=== PATIENT | male | born 1970 | race African-American/Black ===

== ENCOUNTER 2017-09-24 23:18 | Inpatient (IN) | payer OTHER, SELFPAY ==
[~2017-09-24 23:18] MED LIST: ISOVUE-370 76%-LOCM 1 ML ONE
[2017-09-24 23:41] LABS: #Basophils 0.2 thou/uL (0.0-0.2); #Eosinphils 0.1 thou/uL (0.0-0.7); #Lymphocytes 3.3 thou/uL (1.20-3.40); #Monocytes 0.9 thou/uL (0.11-0.59); #Neutrophils 13.3 thou/uL (1.40-6.50); %Eosinophils 0.7 % (0.0-10.0); %Lymphocytes 18.6 % (21.0-51.0); %Monocytes 5.1 % (0.0-10.0); %Neutrophils 74.7 % (42.0-75.0); Hemoglobin 14.9 g/dL (14.0-18.0); Mean Corpuscular HGB CONC 35.4 g/dL (32.0-36.0); Mean Corpuscular Hemoglobin 31.7 pg (27.0-31.0); Mean Corpuscular Volume 89.6 fl (80.0-94.0); Mean Platelet Volume 6.7 fL (7.4-10.4); Platelet Count 345 thou/uL (130-400); RBC Distribution Width 11.6 % (11.5-14.5); Red Blood Cell (RBC) Count 4.71 mill/uL (4.70-6.10); White Blood Cell (WBC) Count 17.9 thou/uL (4.8-10.8)
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
[2017-09-24 23:46] LABS: PTT 23.3 SEC (22.9-36.1); Prothrombin Time 13.6 SEC (12.0-14.7)
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
[2017-09-25 00:01] LABS: ALT (SGPT) 157 U/L (8-55); AST (SGOT) 194 U/L (5-34); Acetaminophen Less than 6.0 mcg/mL (10.0-30.0); Albumin 4.4 g/dL (3.5-5.0); Alcohol 158 mg/dL (Less than 10); Alkaline Phosphatase 52 U/L (40-150); Anion Gap 15 mmol/L (10-20); BUN (Urea Nitrogen) 13 mg/dL (8.9-20.6); Bilirubin, Total 0.5 mg/dL (0.2-1.2); Calc. Creatinine Clearance 0 mL/min (70-130); Calcium 10.1 mg/dL (7.8-10.44); Carbon Dioxide 20 mmol/L (22-29); Chloride 102 mmol/L (98-107); Estimated GFR-MDRD 67; Globulin 2.5 g/dL (2.4-3.5); Glucose 189 mg/dL (70-105); Potassium 3.8 mmol/L (3.5-5.1); Protein, Total 6.9 g/dL (6.0-8.3); Salicylate Less than 8.0 mg/dL (15.0-30.0); Sodium 133 mmol/L (136-145)
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
[2017-09-25] MEDS ORDERED: Morphine 4 MG/ML VIAL ONE (00:06)
[2017-09-25] MEDS ORDERED: CEFAZOLIN/Water 2 GM/20 ML SYRINGE ONE (00:06)
[2017-09-25] MEDS ORDERED: Adacel (T-DAP) 0.5 ML VIAL ONE (00:06)
[2017-09-25] MEDS ORDERED: Lidocaine 1% w/Epinephrine 1:100K 20 ML VIAL ONE (00:06)
[2017-09-25] MEDS ORDERED: Ondansetron ODT 8 MG TAB ONE (00:26)
[2017-09-25] MEDS ORDERED: Dextrose 5% in Water 1,000 ML IV PRN (01:31)
[2017-09-25] MEDS ORDERED: Insulin Regular 300 UNITS/3 ML VIAL SC PRN (01:31)
[2017-09-25] MEDS ORDERED: hydrALAZINE 20 MG/ML VIAL SLOW IVP PRN (01:31)
[2017-09-25] MEDS ORDERED: Rib Fracture Protocol IV SCH (01:31)
[2017-09-25] MEDS ORDERED: Ondansetron ODT 4 MG TAB PO PRN (01:31)
[2017-09-25] MEDS ORDERED: Ondansetron HCl/PF 4 MG/2 ML Vial IVP PRN (01:31)
[2017-09-25] MEDS ORDERED: Dextrose 50% Abboject 50 ML SYRINGE SLOW IVP PRN ×2 (01:31)
[2017-09-25] MEDS ORDERED: Promethazine HCl 25 MG/ML VIAL IM PRN ×2 (01:31)
[2017-09-25 01:55] LABS: Bilirubin Negative (Negative); Blood, Urine Large (Negative); Clarity CLOUDY (Clear); Glucose, Urine (Dipstick) Negative (Negative); Leukocyte Trace (Negative); Nitrite Negative (Negative); Protein, Urine (Dipstick) 100 mg/dL (Neg-Trace); Specific Gravity, Urine 1.018 (1.002-1.036); Urobilinogen 0.2 mg/dL (0.2-1.0)
[2017-09-25 01:56] LABS: Amphetamine Not Detected (NotDetected); Barbiturates Screen Not Detected (NotDetected); Benzodiazepine Screen Not Detected (NotDetected); Cocaine Metabolite Screen Detected (NotDetected); Medtox Control Line Valid? VALID (VALID); Medtox Reader # READER 4; Methadone Not Detected (NotDetected); Methamphetamine Not Detected (NotDetected); Opiate Screen Detected (NotDetected); Oxycodone Screen Not Detected (NotDetected); Phencyclidine (PCP) Not Detected (NotDetected); THC/Cannabinoid Screen Not Detected (NotDetected); Tricyclic Screen Not Detected (NotDetected)
[2017-09-25 01:57] LABS: Pathc Cast-AUWi Flag 0.29 (0-2.49); Yeast-AUWi Flag 167.1 (0-25.0)
[2017-09-25 01:58] LABS: Crystals/HPF 1+ AMORPH URATES HPF (Negative); Hyaline Casts/LPF NONE SEEN LPF (0-3 Hyaline)
[2017-09-25 01:59] LABS: Bacteria/HPF Rare-Few HPF (None Seen); RBC/HPF GREATER THAN 50-TNTC HPF (0-3); Squamous Epithelial 0-3 HPF (0-3)
[2017-09-25] MEDS ORDERED: Ketorolac Tromethamine 30 MG/ML VIAL IVP SCH (02:15)
[2017-09-25] MEDS: Sodium Chloride 0.9% 1,000 ML IV SCH ×3 (02:23→21:36)
[2017-09-25] MEDS: Ketorolac Tromethamine 30 MG/ML VIAL IVP SCH ×4 (02:23→18:18)
[2017-09-25] MEDS: Oxazepam 10 MG CAP PO SCH ×3 (02:24→18:17)
[2017-09-25 03:05] LABS: Hemoglobin 12.5 g/dL (14.0-18.0)
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
[2017-09-25 03:08] VITALS: BMI 24.6
[2017-09-25 03:31] LABS: ALT (SGPT) 128 U/L (8-55); AST (SGOT) 147 U/L (5-34); Albumin 3.5 g/dL (3.5-5.0); Alkaline Phosphatase 40 U/L (40-150); Anion Gap 15 mmol/L (10-20); BUN (Urea Nitrogen) 13 mg/dL (8.9-20.6); Bilirubin, Total 0.3 mg/dL (0.2-1.2); Calc. Creatinine Clearance 98 mL/min (70-130); Calcium 8.1 mg/dL (7.8-10.44); Carbon Dioxide 15 mmol/L (22-29); Chloride 108 mmol/L (98-107); Estimated GFR-MDRD Greater than 90; Globulin 1.9 g/dL (2.4-3.5); Glucose 158 mg/dL (70-105); Potassium 3.9 mmol/L (3.5-5.1); Protein, Total 5.4 g/dL (6.0-8.3); Sodium 134 mmol/L (136-145)
[2017-09-25] MEDS ORDERED: Morphine 4 MG/ML VIAL SLOW IVP PRN ×2 (04:50→04:51)
[2017-09-25] MEDS: Acetaminophen 650 MG Suppository PR SCH ×2 (06:43→12:07)
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
[2017-09-25 07:42] LABS: Hemoglobin 12.2 g/dL (14.0-18.0)
--- NOTE | 2017-09-25 07:45 | RAD ---
CHEST 1 VIEW: HISTORY: Dyspnea. Followup. COMPARISON: 09/25/17. FINDINGS: Cardiac silhouette is magnified and upper limits of normal in size. Pulmonary vasculature unremarkab le. Mediastinum midline. Left thoracostomy tube is in place without significant residual pneumothor ax. IMPRESSION: Stable postoperative appearance of the chest. POS: [facility]
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
[2017-09-25] MEDS ORDERED: CEFAZOLIN/Water 2 GM/20 ML SYRINGE SLOW IVP SCH (08:30)
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
[2017-09-25] MEDS ORDERED: Famotidine 40 MG/4 ML VIAL SLOW IVP SCH (09:00)
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
[2017-09-25] MEDS ORDERED: Pantoprazole 40 MG VIAL IVP SCH (10:15)
[2017-09-25] MEDS ORDERED: Lidocaine 1% PF 5 ML VIAL ONE (10:39)
[2017-09-25] MEDS ORDERED: PROPOFOL 200 MG/20 ML VIAL ONE (10:39)
[2017-09-25] MEDS ORDERED: Succinylcholine Chloride 20 MG/ML 10 ml SYRINGE FS ONE (10:39)
--- NOTE | 2017-09-25 11:24 | RAD ---
AP PELVIS RADIOGRAPH: Date: 09/25/17 HISTORY: Pelvic fractures. COMPARISON: CT pelvis on 09/24/17. FINDINGS: As noted on the CT scan examination, there are mildly and slightly displaced fractures invo lving the left superior and inferior pubic rami. Fractures involving the right ilium and right aspect of the sacrum are less well delineated on this exam. No fracture is seen involving the visualized pr oximal femurs. There is questionable slight widening of the left sacroiliac joint compared to the rig ht. No other osseous abnormality seen. Temperature probe overlies the midline of the pelvis. IMPRESSION: 1. Mildly and displaced fractures involving the left superior and inferior pubic rami. 2. Suggestion of slight widening of the left sacroiliac joint. 3. Fractures involving the right iliac bone, as well as the right aspect of the sacrum are not well delineated on this exam. POS: [facility]
[2017-09-25] MEDS: Folic Acid 1 MG TAB PO SCH (12:06)
[2017-09-25] MEDS: Senokot S 8.6-50 MG TAB PO SCH ×2 (12:06→21:36)
[2017-09-25] MEDS: Polyethylene Glycol 3350 17 GM Packet PO SCH (12:06)
[2017-09-25] MEDS ORDERED: Fentanyl 250 MCG/5 ML VIAL ONE (12:54)
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
--- NOTE | 2017-09-25 14:50 | RAD ---
AP PELVIS THREE VIEWS INTRAOPERATIVE FLUOROSCOPY: History: Fractures. FINDINGS: Intraoperative fluoroscopy was provided for internal fixation as performed by Dr. Shankar. Spot flu oroscopic images show lag screws transfixing each sacroiliac joint. Fluoro time = 85 seconds. POS: [facility]
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
[2017-09-25 16:27] LABS: Hemoglobin 11.4 g/dL (14.0-18.0)
[2017-09-25] MEDS: Acetaminophen 325 MG TAB PO SCH (18:15)
[2017-09-25] MEDS: traMADol HCl 50 MG TAB PO SCH (18:16)
[2017-09-26] MEDS: Acetaminophen 325 MG TAB PO SCH ×4 (00:59→17:31)
[2017-09-26] MEDS: Ketorolac Tromethamine 30 MG/ML VIAL IVP SCH ×4 (00:59→17:32)
[2017-09-26] MEDS: traMADol HCl 50 MG TAB PO SCH ×4 (01:00→17:32)
[2017-09-26] MEDS: Oxazepam 10 MG CAP PO SCH ×3 (01:05→17:31)
[2017-09-26] MEDS: Sodium Chloride 0.9% 1,000 ML IV SCH (02:26)
[2017-09-26 05:26] LABS: #Eosinphils 0.1 thou/uL (0.0-0.7); #Lymphocytes 1.4 thou/uL (1.20-3.40); #Monocytes 0.5 thou/uL (0.11-0.59); #Neutrophils 4.3 thou/uL (1.40-6.50); %Basophils 0.5 % (0.0-1.0); %Eosinophils 1.7 % (0.0-10.0); %Lymphocytes 22.4 % (21.0-51.0); %Neutrophils 67.5 % (42.0-75.0); Hemoglobin 9.2 g/dL (14.0-18.0); Mean Corpuscular HGB CONC 36.5 g/dL (32.0-36.0); Mean Corpuscular Volume 90.6 fl (80.0-94.0); Mean Platelet Volume 6.7 fL (7.4-10.4); Platelet Count 181 thou/uL (130-400); RBC Distribution Width 11.6 % (11.5-14.5); Red Blood Cell (RBC) Count 2.77 mill/uL (4.70-6.10); White Blood Cell (WBC) Count 6.3 thou/uL (4.8-10.8)
[2017-09-26 05:46] LABS: Anion Gap 8 mmol/L (10-20); BUN (Urea Nitrogen) 9 mg/dL (8.9-20.6); Calc. Creatinine Clearance 114 mL/min (70-130); Calcium 7.8 mg/dL (7.8-10.44); Carbon Dioxide 24 mmol/L (22-29); Chloride 108 mmol/L (98-107); Estimated GFR-MDRD Greater than 90; Glucose 107 mg/dL (70-105); Magnesium 1.8 mg/dL (1.6-2.6); Phosphorus 2.9 mg/dL (2.3-4.7); Potassium 3.7 mmol/L (3.5-5.1); Sodium 136 mmol/L (136-145)
[2017-09-26] MEDS: Polyethylene Glycol 3350 17 GM Packet PO SCH (08:22)
[2017-09-26] MEDS: Folic Acid 1 MG TAB PO SCH (08:22)
[2017-09-26] MEDS: Senokot S 8.6-50 MG TAB PO SCH ×2 (08:22→21:34)
[2017-09-26] MEDS: Pantoprazole 40 MG VIAL IVP SCH (08:22)
[2017-09-26] MEDS: HYDROcodone/Acetaminophen 5/325 mg Tablet PO PRN ×2 (08:23→15:49)
--- NOTE | 2017-09-26 08:45 | RAD ---
ONE VIEW CHEST: COMPARISON: 09/25/17. HISTORY: Chest tube. FINDINGS: Stable left-sided chest tube. Persistent parenchymal and pleural changes in the left hemithorax. Ad equate aeration of the right lung. No pneumothorax. IMPRESSION: No significant interval change. POS: [facility]
[2017-09-26] MEDS ORDERED: Gabapentin 300 MG CAP PO SCH (16:00)
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
[2017-09-26] MEDS: Gabapentin 300 MG CAP PO SCH (21:35)
[2017-09-27] MEDS: traMADol HCl 50 MG TAB PO SCH ×5 (00:07→22:51)
[2017-09-27] MEDS: Acetaminophen 325 MG TAB PO SCH ×5 (00:07→22:51)
[2017-09-27] MEDS: Ketorolac Tromethamine 30 MG/ML VIAL IVP SCH ×5 (00:08→22:52)
[2017-09-27] MEDS: Oxazepam 10 MG CAP PO SCH ×3 (02:59→18:06)
[2017-09-27 05:55] LABS: #Eosinphils 0.3 thou/uL (0.0-0.7); #Monocytes 0.5 thou/uL (0.11-0.59); #Neutrophils 4.5 thou/uL (1.40-6.50); %Basophils 0.4 % (0.0-1.0); %Eosinophils 4.6 % (0.0-10.0); %Monocytes 7.9 % (0.0-10.0); %Neutrophils 71.1 % (42.0-75.0); Hemoglobin 8.6 g/dL (14.0-18.0); Mean Corpuscular HGB CONC 35.2 g/dL (32.0-36.0); Mean Platelet Volume 6.7 fL (7.4-10.4); Platelet Count 191 thou/uL (130-400); RBC Distribution Width 11.5 % (11.5-14.5); Red Blood Cell (RBC) Count 2.68 mill/uL (4.70-6.10); White Blood Cell (WBC) Count 6.3 thou/uL (4.8-10.8)
[2017-09-27] MEDS: HYDROcodone/Acetaminophen 5/325 mg Tablet PO PRN (09:22)
[2017-09-27] MEDS: Gabapentin 300 MG CAP PO SCH (09:25)
[2017-09-27] MEDS: Folic Acid 1 MG TAB PO SCH (09:25)
[2017-09-27] MEDS: Pantoprazole 40 MG VIAL IVP SCH (09:26)
[2017-09-27] MEDS: Polyethylene Glycol 3350 17 GM Packet PO SCH (09:27)
[2017-09-27] MEDS: Senokot S 8.6-50 MG TAB PO SCH ×2 (09:27→22:53)
--- NOTE | 2017-09-27 14:26 | RAD ---
PORTABLE AP CHEST XRAY: DATE: 09/27/17. HISTORY: Chest tube in place. Followup evaluation. COMPARISON: 09/26/17. FINDINGS: Left-sided thoracostomy tube has been withdrawn when compared to the prior study, and the most proxim al sidehole now overlies the subcutaneous soft tissues at the lateral left chest. There is a tiny le ft apical pneumothorax identified. Atelectasis is present at the left lung base. Left-sided rib fra ctures are not well delineated on this exam. There is a fracture involving the anterior right third rib. No pneumothorax or pleural effusion is seen on the right. IMPRESSION: 1. The left-sided thoracostomy tube has been withdrawn, and the most proximal side hole now overlies the subcutaneous soft tissues. A tiny left apical pneumothorax is present. 2. Parenchymal changes left lung base probably related to atelectasis. 3. Fracture right posterior third rib. 4. Left-sided rib fractures are not well seen. POS: [facility]
[2017-09-27] MEDS: Gabapentin 100 MG CAP PO SCH ×2 (15:59→22:53)
[2017-09-27] MEDS: Ferrous Sulfate 325 MG TAB PO SCH (16:00)
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
[2017-09-27] MEDS: Ascorbic Acid 500 mg Chewable Tablet PO SCH (22:53)
[2017-09-28] MEDS: Oxazepam 10 MG CAP PO SCH ×3 (04:38→18:29)
[2017-09-28] MEDS: traMADol HCl 50 MG TAB PO SCH ×4 (06:13→23:58)
[2017-09-28] MEDS: Ketorolac Tromethamine 30 MG/ML VIAL IVP SCH ×2 (06:13→12:37)
[2017-09-28] MEDS: Acetaminophen 325 MG TAB PO SCH ×3 (06:14→18:28)
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
[2017-09-28] MEDS ORDERED: Lidocaine 1% (PF) 30 ML VIAL ONE (08:06)
[2017-09-28] MEDS ORDERED: Morphine 4 MG/ML VIAL ONE (08:41)
[2017-09-28] MEDS ORDERED: Morphine 4 MG/ML Carpuject SLOW IVP ONE (09:03)
[2017-09-28] MEDS ORDERED: Lidocaine 1% (PF) 30 ML VIAL SC SCH (09:15)
[2017-09-28] MEDS ORDERED: Morphine 4 MG/ML VIAL IV SCH (09:15)
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
[2017-09-28] MEDS: Pantoprazole 40 MG VIAL IVP SCH (09:26)
[2017-09-28] MEDS: Polyethylene Glycol 3350 17 GM Packet PO SCH (09:26)
[2017-09-28] MEDS: Senokot S 8.6-50 MG TAB PO SCH ×2 (09:27→20:29)
[2017-09-28] MEDS: Enoxaparin Sodium 40 MG/0.4 ML SYRINGE SC SCH (09:27)
[2017-09-28] MEDS: Ascorbic Acid 500 mg Chewable Tablet PO SCH ×2 (09:28→21:59)
[2017-09-28] MEDS: Ferrous Sulfate 325 MG TAB PO SCH ×2 (09:28→18:28)
[2017-09-28] MEDS: Gabapentin 100 MG CAP PO SCH ×3 (09:28→21:59)
[2017-09-28] MEDS: Folic Acid 1 MG TAB PO SCH (09:28)
--- NOTE | 2017-09-28 09:59 | RAD ---
PORTABLE CHEST: Date: 09/28/17 Time: 0707 hours INDICATION: Chest tube follow-up. COMPARISON: 09/27/17. FINDINGS: There is now complete collapse of the left lung with large left pneumothorax. A chest tube overlies t he lateral ribs and is not adequately positioned. There is mild subcutaneous emphysema on the left. Right lung is aerated and clear. IMPRESSION: Collapse of the left lung with large left pneumothorax. These findings were given to the patient's nurse at time of this dictation and patient's physician is being paged. CODE CR. POS: [facility]
--- NOTE | 2017-09-28 11:22 | RAD ---
AP CHEST: History: Comparison: 09-28-17 FINDINGS: There has been interval advancement of the left sided chest tube. Large left sided pneumothorax has r esolved and the left lung has re-expanded. Some re-expansion minimal pulmonary edema is seen. Some ar eas of opacification seen in the lateral aspect of the left lung base as well. IMPRESSION: Interval placement of the left sided chest tube with re-expansion of the left lung. Extensive left si ded subcutaneous emphysema is seen. POS: [facility]
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
[2017-09-28] MEDS: HYDROcodone/Acetaminophen 5/325 mg Tablet PO PRN (22:04)
[2017-09-29] MEDS: Acetaminophen 325 MG TAB PO SCH ×4 (00:58→18:25)
[2017-09-29] MEDS: Oxazepam 10 MG CAP PO SCH ×3 (01:01→18:25)
[2017-09-29] MEDS: traMADol HCl 50 MG TAB PO SCH ×3 (06:39→18:25)
[2017-09-29 07:52] LABS: #Eosinphils 0.4 thou/uL (0.0-0.7); #Lymphocytes 0.9 thou/uL (1.20-3.40); #Monocytes 0.6 thou/uL (0.11-0.59); #Neutrophils 3.8 thou/uL (1.40-6.50); %Basophils 0.3 % (0.0-1.0); %Eosinophils 6.7 % (0.0-10.0); %Lymphocytes 15.5 % (21.0-51.0); %Monocytes 10.4 % (0.0-10.0); %Neutrophils 67.1 % (42.0-75.0); Hemoglobin 7.8 g/dL (14.0-18.0); Mean Corpuscular HGB CONC 35.2 g/dL (32.0-36.0); Mean Corpuscular Hemoglobin 32.1 pg (27.0-31.0); Mean Corpuscular Volume 91.2 fl (80.0-94.0); Mean Platelet Volume 6.4 fL (7.4-10.4); Platelet Count 274 thou/uL (130-400); RBC Distribution Width 11.5 % (11.5-14.5); Red Blood Cell (RBC) Count 2.41 mill/uL (4.70-6.10); White Blood Cell (WBC) Count 5.6 thou/uL (4.8-10.8)
[2017-09-29 08:14] LABS: Anion Gap 13 mmol/L (10-20); BUN (Urea Nitrogen) 5 mg/dL (8.9-20.6); Calc. Creatinine Clearance 129 mL/min (70-130); Calcium 8.6 mg/dL (7.8-10.44); Carbon Dioxide 26 mmol/L (22-29); Chloride 100 mmol/L (98-107); Estimated GFR-MDRD Greater than 90; Glucose 144 mg/dL (70-105); Magnesium 2.2 mg/dL (1.6-2.6); Phosphorus 3.2 mg/dL (2.3-4.7); Potassium 3.7 mmol/L (3.5-5.1); Sodium 135 mmol/L (136-145)
--- NOTE | 2017-09-29 09:33 | RAD ---
PORTABLE CHEST 1 VIEW: Date: 09/29/17 Time: 0657 hours HISTORY: Chest tube placement. FINDINGS/IMPRESSION: Left-sided chest tube remains in place. Left-sided subcutaneous emphysema is again seen. No definite pneumothorax is identified. The heart size is normal. There is mild atelectatic change at the left john ng base. POS: [facility]
[2017-09-29] MEDS: Ferrous Sulfate 325 MG TAB PO SCH ×2 (10:13→18:25)
[2017-09-29] MEDS: Enoxaparin Sodium 40 MG/0.4 ML SYRINGE SC SCH (10:14)
[2017-09-29] MEDS: Gabapentin 100 MG CAP PO SCH ×3 (10:14→21:19)
[2017-09-29] MEDS: Folic Acid 1 MG TAB PO SCH (10:14)
[2017-09-29] MEDS: Ascorbic Acid 500 mg Chewable Tablet PO SCH ×2 (10:14→21:19)
[2017-09-29] MEDS: Polyethylene Glycol 3350 17 GM Packet PO SCH (10:17)
[2017-09-29] MEDS: Senokot S 8.6-50 MG TAB PO SCH ×2 (10:18→21:20)
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
[2017-09-29] MEDS: HYDROcodone/Acetaminophen 5/325 mg Tablet PO PRN (21:19)
[2017-09-30] MEDS: Acetaminophen 325 MG TAB PO SCH ×3 (00:58→17:45)
[2017-09-30] MEDS: traMADol HCl 50 MG TAB PO SCH ×3 (00:59→17:45)
[2017-09-30] MEDS: Oxazepam 10 MG CAP PO SCH ×3 (01:00→17:45)
[2017-09-30 07:38] LABS: #Eosinphils 0.4 thou/uL (0.0-0.7); #Lymphocytes 0.9 thou/uL (1.20-3.40); #Monocytes 0.5 thou/uL (0.11-0.59); #Neutrophils 2.9 thou/uL (1.40-6.50); %Basophils 0.2 % (0.0-1.0); %Eosinophils 7.6 % (0.0-10.0); %Lymphocytes 19.7 % (21.0-51.0); %Monocytes 10.9 % (0.0-10.0); %Neutrophils 61.5 % (42.0-75.0); Hemoglobin 7.6 g/dL (14.0-18.0); Mean Corpuscular HGB CONC 35.6 g/dL (32.0-36.0); Mean Corpuscular Hemoglobin 32.3 pg (27.0-31.0); Mean Corpuscular Volume 90.6 fl (80.0-94.0); Mean Platelet Volume 5.8 fL (7.4-10.4); Platelet Count 309 thou/uL (130-400); RBC Distribution Width 11.6 % (11.5-14.5); Red Blood Cell (RBC) Count 2.36 mill/uL (4.70-6.10); White Blood Cell (WBC) Count 4.7 thou/uL (4.8-10.8)
[2017-09-30 07:59] LABS: Anion Gap 13 mmol/L (10-20); BUN (Urea Nitrogen) 5 mg/dL (8.9-20.6); Calc. Creatinine Clearance 127 mL/min (70-130); Calcium 8.9 mg/dL (7.8-10.44); Carbon Dioxide 28 mmol/L (22-29); Chloride 100 mmol/L (98-107); Estimated GFR-MDRD Greater than 90; Glucose 145 mg/dL (70-105); Magnesium 2.1 mg/dL (1.6-2.6); Phosphorus 3.4 mg/dL (2.3-4.7); Potassium 3.6 mmol/L (3.5-5.1); Sodium 137 mmol/L (136-145)
--- NOTE | 2017-09-30 09:11 | RAD ---
PORTABLE CHEST: Date: 09-30-17 Time: 6:58 a.m. History: Chest tube. FINDINGS: A tiny left pneumothorax is present. Left sided chest tube remains in place. There is subcutaneous em physema in the left lateral chest wall. There are mild atelectatic changes in the left lung base. POS: [facility]
[2017-09-30] MEDS ORDERED: Bacitracin Zinc Ointment 30 gm TUBE ONE (13:39)
[2017-09-30] MEDS ORDERED: Bupivacaine PF 0.5% 30 ML VIAL ONE ×2 (13:39→18:55)
[2017-09-30] MEDS ORDERED: Sodium Chloride 0.9% 0 ML ONE (13:41)
[2017-09-30] MEDS ORDERED: Dexamethasone 20 MG/5 ML VIAL ONE (13:41)
[2017-09-30] MEDS ORDERED: CEFAZOLIN/Water 2 GM/20 ML SYRINGE ONE (14:33)
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
[2017-09-30] MEDS ORDERED: Midazolam HCl 2 mg/2 ml Vial ONE (14:46)
[2017-09-30] MEDS ORDERED: Fentanyl 250 MCG/5 ML VIAL ONE (14:55)
[2017-09-30] MEDS ORDERED: PROPOFOL 200 MG/20 ML VIAL ONE (15:10)
[2017-09-30] MEDS ORDERED: Lidocaine 1% PF 5 ML VIAL ONE (15:10)
[2017-09-30] MEDS ORDERED: Fentanyl 100 MCG/2 ML VIAL ONE ×5 (17:04→20:47)
[2017-09-30] MEDS: Ascorbic Acid 500 mg Chewable Tablet PO SCH ×2 (17:43→21:33)
[2017-09-30] MEDS: Enoxaparin Sodium 40 MG/0.4 ML SYRINGE SC SCH (17:43)
[2017-09-30] MEDS: Ferrous Sulfate 325 MG TAB PO SCH (17:43)
[2017-09-30] MEDS: Polyethylene Glycol 3350 17 GM Packet PO SCH (17:44)
[2017-09-30] MEDS: Senokot S 8.6-50 MG TAB PO SCH ×2 (17:44→21:33)
[2017-09-30] MEDS: Folic Acid 1 MG TAB PO SCH (17:44)
[2017-09-30] MEDS: Gabapentin 100 MG CAP PO SCH ×2 (17:44→21:33)
--- NOTE | 2017-09-30 18:43 | RAD ---
LEFT WRIST THREE VIEW 09/30/17 HISTORY: ORIF COMPARISON: None. FINDINGS: Numerous suture anchors and peripheral pins are seen through the proximal and distal carpal row. Sati sfactory alignment. IMPRESSION: Satisfactory postoperative alignment. POS: [facility]
[2017-09-30] MEDS ORDERED: Promethazine HCl 25 MG/ML VIAL SLOW IVP PRN (20:16)
[2017-09-30] MEDS ORDERED: Promethazine HCl 25 MG/ML VIAL IM PRN ×2 (20:16→20:58)
[2017-09-30] MEDS ORDERED: Ondansetron HCl/PF 4 MG/2 ML Vial IVP PRN (20:16)
--- NOTE | 2017-09-30 20:20 | RAD ---
CHEST ONE VIEW: 09/30/17 HISTORY: Postoperative increased respiratory rate. COMPARISON: Radiograph same day. FINDINGS: Trace left apical pneumothorax. Small basilar left pneumothorax. Subcutaneous emphysema. Thoracostomy tube in good position. IMPRESSION: Unchanged appearance of small left pneumothorax. POS: [facility]
[2017-09-30] MEDS ORDERED: Morphine 4 MG/ML VIAL SLOW IVP PRN (20:56)
[2017-09-30] MEDS ORDERED: Meperidine HCl/PF 25 MG/ML VIAL IM PRN (20:57)
[2017-09-30] MEDS: HYDROcodone/Acetaminophen 5/325 mg Tablet PO PRN (21:33)
[2017-09-30] MEDS: Vancomycin HCl 1 GM in Premix Bag 1 BAG IVPB SCH (21:41)
[2017-10-01] MEDS: traMADol HCl 50 MG TAB PO SCH ×5 (00:11→23:38)
[2017-10-01] MEDS: Acetaminophen 325 MG TAB PO SCH ×5 (00:11→23:38)
[2017-10-01] MEDS: Oxazepam 10 MG CAP PO SCH ×3 (02:55→17:37)
--- NOTE | 2017-10-01 08:11 | RAD ---
SINGLE VIEW OF THE CHEST: COMPARISON: 09/30/17. HISTORY: Chest tube placement for pneumothorax. FINDINGS: A single view of the chest shows a normal-size cardiomediastinal silhouette. There is a left-sided c hest tube. There is a left apical pneumothorax. Blunting of the left costophrenic angle is likely a small left pleural effusion. There is air in the left chest wall. IMPRESSION: Stable tiny left apical pneumothorax. POS: [facility]
[2017-10-01] MEDS: Vancomycin HCl 1 GM in Premix Bag 1 BAG IVPB SCH ×2 (08:20→20:20)
[2017-10-01] MEDS: Senokot S 8.6-50 MG TAB PO SCH ×2 (08:21→20:20)
[2017-10-01] MEDS: Ferrous Sulfate 325 MG TAB PO SCH ×2 (08:21→16:11)
[2017-10-01] MEDS: Polyethylene Glycol 3350 17 GM Packet PO SCH (08:21)
[2017-10-01] MEDS: Enoxaparin Sodium 40 MG/0.4 ML SYRINGE SC SCH (08:21)
[2017-10-01] MEDS: Ascorbic Acid 500 mg Chewable Tablet PO SCH ×2 (08:21→20:20)
[2017-10-01] MEDS: Folic Acid 1 MG TAB PO SCH (08:21)
[2017-10-01] MEDS: Gabapentin 100 MG CAP PO SCH ×3 (08:21→20:20)
[2017-10-01] MEDS ORDERED: Sodium Chloride 0.9% 500 ML IV SCH (09:00)
[2017-10-01 09:05] LABS: #Eosinphils 0.3 thou/uL (0.0-0.7); #Lymphocytes 0.9 thou/uL (1.20-3.40); #Monocytes 1.2 thou/uL (0.11-0.59); #Neutrophils 6.5 thou/uL (1.40-6.50); %Basophils 0.3 % (0.0-1.0); %Lymphocytes 9.8 % (21.0-51.0); %Monocytes 13.9 % (0.0-10.0); Mean Corpuscular HGB CONC 36.3 g/dL (32.0-36.0); Mean Corpuscular Hemoglobin 32.2 pg (27.0-31.0); Mean Corpuscular Volume 88.7 fl (80.0-94.0); Mean Platelet Volume 5.7 fL (7.4-10.4); Platelet Count 376 thou/uL (130-400); RBC Distribution Width 11.7 % (11.5-14.5); Red Blood Cell (RBC) Count 2.48 mill/uL (4.70-6.10); White Blood Cell (WBC) Count 8.8 thou/uL (4.8-10.8)
[2017-10-01 09:29] LABS: Anion Gap 17 mmol/L (10-20); BUN (Urea Nitrogen) 5 mg/dL (8.9-20.6); Calc. Creatinine Clearance 120 mL/min (70-130); Carbon Dioxide 23 mmol/L (22-29); Chloride 99 mmol/L (98-107); Estimated GFR-MDRD Greater than 90; Glucose 168 mg/dL (70-105); Magnesium 1.9 mg/dL (1.6-2.6); Phosphorus 3.2 mg/dL (2.3-4.7); Potassium 3.6 mmol/L (3.5-5.1); Sodium 135 mmol/L (136-145)
[2017-10-01] MEDS: HYDROcodone/Acetaminophen 10/325 mg Tablet PO PRN ×2 (10:07→16:11)
[2017-10-01] MEDS: Ibuprofen 600 MG TAB PO SCH ×2 (11:45→20:20)
[2017-10-01] MEDS ORDERED: ISOVUE-370 76%-LOCM 1 ML ONE (12:12)
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
--- NOTE | 2017-10-01 15:24 | OP ---
DATE OF PROCEDURE: 09/30/2017 PREOPERATIVE DIAGNOSES: 1. Left lunate dislocation with the final associated ligament tear. 2. Radial capsule ligament avulsion. 3. Radioscaphocapitate ligament tear. 4. Lunotriquetral ligament tear with most of the remaining tissue on the triquetrum. 5. Mid carpal subluxation. 6. Space of Poirire, complete volar capsule ligament tear. 7. Capitate avulsion fracture, a 6-mm diameter fragment mostly chondral. PROCEDURES PERFORMED: 1. Open reduction and internal fixation of lunate dislocation. 2. Open repair reconstruction scapholunate ligament. 3. Open reconstruction lunotriquetral ligament. 4. Open mid carpus as capitolunate reduction. 5. Pinning of the scapholunate. 6. Pinning of the lunotriquetral. 7. Dorsal capsule reconstruction back to bone. 8. Volar capsule, space of Poirire, arthrotomy with closure of the capsule. 9. CMC revision. 10. Application of short arm splint. 11. Volar mid carpal tunnel release, left. INDICATION: The patient is now 5 days after closed reduction of a complete lunate palmar dislocation . It is known by history in order to do this type of repair, the patient must have at least three st ructures and all three should be repaired. TOURNIQUET TIME: 124 minutes followed by 120 minutes deflation and then re-exsanguination of the darden b for 25 minutes to do the volar capsular space of Lidia repair as well as a carpal tunnel release. DESCRIPTION OF PROCEDURE: After successful general LMA technique, the limb was prepped and draped. The patient then had the timeout performed appropriately, and we marked on the left side with tourniq uet stated and also radiographs showed, so consent matched and surgery began. The limb was exsanguin ated and inflated to 250 mmHg pressure with a zigzag incision centered over the dorsum and volar inci fanny between the median nerve and the flexor tendons outlined. First with dorsal approach, carried t hrough the skin and subcutaneous tissue here after opening the retinaculum, visualizing its we saw that the radial capsule over the styloid, the area just distal to Kathy's tubercle, the radiosca phocapitate and radioscapholunate ligaments all had torn. For this reason, we opened the capsule, ou tlined the radioscaphocapitate and radioscapholunate ligaments, saved them and then visualized that t he patient had a 100% tear of the scapholunate ligament off the scaphoid and a tear of the lunotrique tral ligament, nearly 100% off the scaphoid. For this reason, we created a small trough, using combi nation of heavy Prolene through trough and bone x2 and the scaphoid x1 near the triquetrum and then m ultiple anchors in each site. Then, before repairing this, and did the reduction and closure, we cre ated a low trough, . First we gently debrided the bed, but there was a small ostial but large chondral fracture and tried to drill this initially, but the screw would not hold, so we abandoned th is and used a Prolene as well as an anchor to bring it back into its bed in the capitate and held sec urely and flat. We then began the process of reduction, first the capitate to the lunate was performed after we made a trough and placed the anchors. This was pinned and had excellent capitate to lunate, and lunate to scaphoid arrangement. We then used a combination of the Prolene, we then pinned, completely reduce what was ulnar translocation back to placing the lunate completely in its fossa and the scaphoid cent ered into fossa and there was no evidence of scaphoid fracture or avulsion. After we had appropriate pinning, multifocal capitate to lunate, then scaphoid to lunate, and scaphoid to capitate followed b y 2 pins from the triquetrum into the lunate, we then tied all sutures which were 4 on the triquetrum and 6 on the scaphoid to help reexpand appropriately the lunate. Pinning was excellent. We then used 2 anchors to repair the radial the capsule back to the bleeding edge of bone underneath and the remainder of the repair was done with a #1 Ethibond and OS-4 needle. Tourniquet had been deflated. Hemostasis was obtained. We were able to close the retinaculum with 0 Vicryl, undyed, finished the capsule repair with the #1 Ethibond [id number] OS-4 needle, and th en closed subcutaneous tissue with excellent hemostasis using a running 4-0 Monocryl, followed by 4-0 nylon interrupted mattress for the epidermis incision. Now, after the tourniquet had been down for almost an hour, we then reinflated the tourniquet, entere d the volar incision in between the tendon and median nerve, saw the sensory branch and dissect ed down. Open the carpal tunnel approximately carpal tunnel release, and now we can visualize both sides of the flexor tendons to see this space, make sure we could visualize the opening an d then passed [id number] 3-0 Prolene x8 across this area until completely intact and there is no way that this space can be violated to the extent we saw today. Once close, we deflated tourniquet, close the palmar skin with a running 4-0 Monocryl and the skin with 4-0 nylon interrupted mattress p attern. Bulky dressing was applied along with a sugar tong splint. The patient left the operating r oom without evidence of anesthetic or operative complication.
--- NOTE | 2017-10-01 16:56 | ULT ---
DOPPLER VENOUS ULTRASOUND OF BOTH LOWER EXTREMITIES: 10/01/17 INDICATION: Elevated D-dimer with immobility. TECHNIQUE: Helton scale, color doppler and vascular duplex with spectral analysis was performed of the deep venous structures of both lower extremity. Common femoral vein, superficial femoral vein, popliteal vein, p osterior tibial vein, proximal greater saphenous and profunda veins were assessed. FINDINGS: Normal compression, flow, and augmentation seen within the deep venous structures of both lower extre mity. IMPRESSION: No evidence of DVT within both lower extremity. POS: [facility]
[2017-10-02] MEDS: Oxazepam 10 MG CAP PO SCH ×3 (02:59→18:06)
[2017-10-02] MEDS: Ibuprofen 600 MG TAB PO SCH ×3 (03:00→20:49)
[2017-10-02] MEDS: Acetaminophen 325 MG TAB PO SCH ×3 (05:16→18:06)
[2017-10-02] MEDS: traMADol HCl 50 MG TAB PO SCH ×3 (05:16→18:06)
--- NOTE | 2017-10-02 08:11 | RAD ---
SINGLE VIEW OF THE CHEST: COMPARISON: 10/01/17. History Left-sided pneumothorax with chest tube placement. FINDINGS: A single view of the chest shows a cardiomediastinal silhouette which is upper limits of normal in si ze. A left-sided chest tube is again seen. There is a tiny left apical pneumothorax. There is a sm all left pleural effusion. IMPRESSION: Stable tiny left apical pneumothorax and small left pleural effusion. POS: [facility]
[2017-10-02] MEDS: Ferrous Sulfate 325 MG TAB PO SCH ×2 (10:29→18:05)
[2017-10-02] MEDS: Gabapentin 100 MG CAP PO SCH ×3 (10:29→20:49)
[2017-10-02] MEDS: Polyethylene Glycol 3350 17 GM Packet PO SCH (10:29)
[2017-10-02] MEDS: Ascorbic Acid 500 mg Chewable Tablet PO SCH ×2 (10:29→20:49)
[2017-10-02] MEDS: Enoxaparin Sodium 40 MG/0.4 ML SYRINGE SC SCH (10:29)
[2017-10-02] MEDS: Senokot S 8.6-50 MG TAB PO SCH ×2 (10:29→20:49)
[2017-10-02] MEDS: Folic Acid 1 MG TAB PO SCH (10:29)
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
[2017-10-03] MEDS: Acetaminophen 325 MG TAB PO SCH ×4 (00:22→17:51)
[2017-10-03] MEDS: traMADol HCl 50 MG TAB PO SCH ×4 (00:22→17:52)
[2017-10-03] MEDS: Ibuprofen 600 MG TAB PO SCH ×2 (03:20→12:23)
[2017-10-03] MEDS: Oxazepam 10 MG CAP PO SCH ×3 (03:20→17:51)
--- NOTE | 2017-10-03 09:01 | RAD ---
PORTABLE CHEST: Date: 10/03/17 HISTORY: Chest tube removal. COMPARISON: Prior day's study. FINDINGS: Left-sided chest tube has been removed. There is still some pleural and parenchymal change in the lef t base. I do not appreciate a definite pneumothorax. Subcutaneous emphysema is still present. IMPRESSION: Interval removal of the left chest tube without any definitive left-sided pneumothorax. POS: [facility]
[2017-10-03] MEDS: Gabapentin 100 MG CAP PO SCH ×2 (09:14→14:55)
[2017-10-03] MEDS: Folic Acid 1 MG TAB PO SCH (09:14)
[2017-10-03] MEDS: Ascorbic Acid 500 mg Chewable Tablet PO SCH (09:15)
[2017-10-03] MEDS: Polyethylene Glycol 3350 17 GM Packet PO SCH (09:15)
[2017-10-03] MEDS: Enoxaparin Sodium 40 MG/0.4 ML SYRINGE SC SCH (09:15)
[2017-10-03] MEDS: Senokot S 8.6-50 MG TAB PO SCH (09:15)
[2017-10-03] MEDS: Ferrous Sulfate 325 MG TAB PO SCH ×2 (09:15→17:51)
--- NOTE | 2017-10-03 16:16 | RAD ---
AP VIEW PELVIS: 10/03/17 HISTORY: Pelvic pain. AP view pelvis is obtained. Again, left superior and inferior pubic rami fracture seen. There is a transosseous right and left sided screw across the right and left SI joints. No other acut e abnormality seen. IMPRESSION: 1. Placement of bilateral SI joint screws. 2. Left superior and inferior pubic rami fractures. POS: [facility]
[2017-10-03 16:25] VITALS: BP 127/83; TEMP 97.5
--- NOTE | 2017-10-03 17:03 | EKG ---
Test Reason : Blood Pressure : / mmHG Vent. Rate : 101 BPM Atrial Rate : 101 BPM P-R Int : 164 ms QRS Dur : 072 ms QT Int : 350 ms P-R-T Axes : 046 023 004 degrees QTc Int : 453 ms Sinus tachycardia Nonspecific T wave abnormality Abnormal ECG Confirmed by ISABELLE TUCKER, DELFINA ([id number]), features editor ORTEGA KRISHNAMURTHY ([id number]) on 10/03/2017 5:02:45 PM Referred By: Confirmed By:DELFINA WALTON MD
[2017-10-03] MEDS ORDERED: Cephalexin 250 MG CAP PO SCH (18:00)
== END 2017-10-03 18:40 | disposition home or self-care (01) | DRG 958 ==
LOC: ERS 23:18 → CCU 09-25 01:31 → SJJU 09-25 15:22
PROVIDERS: ADMIT Specialist; ATTEND Specialist
PROC: 0W9B30Z Drainage of Left Pleural Cavity with Drainage Device, Percutaneous Approach (ICD-10-PCS; principal; 2017-09-25)
PROC: 0QS304Z Reposition Left Pelvic Bone with Internal Fixation Device, Open Approach (ICD-10-PCS; 2017-09-25)
PROC: 0QS204Z Reposition Right Pelvic Bone with Internal Fixation Device, Open Approach (ICD-10-PCS; 2017-09-25)
PROC: 0PSN04Z Reposition Left Carpal with Internal Fixation Device, Open Approach (ICD-10-PCS; 2017-09-25)
DX: S32.82XA Multiple fractures of pelvis without disruption of pelvic ring, initial encounter for closed fracture (principal); S37.091A Other injury of right kidney, initial encounter; S32.009A Unspecified fracture of unspecified lumbar vertebra, initial encounter for closed fracture; S22.42XA Multiple fractures of ribs, left side, initial encounter for closed fracture; R57.9 Shock, unspecified; S27.0XXA Traumatic pneumothorax, initial encounter; V43.52XA Car driver injured in collision with other type car in traffic accident, initial encounter; Y93.89 Activity, other specified; Y92.410 Unspecified street and highway as the place of occurrence of the external cause; S33.2XXA Dislocation of sacroiliac and sacrococcygeal joint, initial encounter; Z72.0 Tobacco use; F10.129 Alcohol abuse with intoxication, unspecified; Y90.6 Blood alcohol level of 120-199 mg/100 ml; I10 Essential (primary) hypertension; R40.2412 Glasgow coma scale score 13-15, at arrival to emergency department; S62.002A Unspecified fracture of navicular [scaphoid] bone of left wrist, initial encounter for closed fracture; G89.11 Acute pain due to trauma; S63.512A Sprain of carpal joint of left wrist, initial encounter; S63.522A Sprain of radiocarpal joint of left wrist, initial encounter
CPT/HCPCS: 36415; 36416; 70450; 71045; 71260; 71275; 72125; 72170; 72190; 74177; 76001; 80048; 80053; 80306; 80307; 81003; 81015; 82533; 83690; 83735; 84100; 85014; 85018; 85025; 85379; 85610; 85730; 86850; 86900; 86901; 90715; 93005; 93970; 94640; A4216; C1713; C1769; C9113; G0390; G8978-GP-CM; G8979-GP-CL; G8987-GO-CK; G8987-GO-CL; G8988-GO-CI; G8988-GO-CJ; J1100; J1650; J1815; J1885; J2001; J2250; J2270; J2704; J3010; J3370; J3490; J7620; Q0162; S0020

== ENCOUNTER 2017-10-15 09:31 | Outpatient (CLI) | payer OTHER | END 2017-10-15 09:32 | disposition home or self-care (01) | LOC: BICRAD 09:31 | PROVIDERS: ATTEND Physician Assistant | DX: S22.42XD Multiple fractures of ribs, left side, subsequent encounter for fracture with routine healing (principal) | CPT/HCPCS: 71046 ==

== ENCOUNTER 2017-12-15 07:44 | Day surgery (SDC) | payer OTHER ==
[2017-12-14 12:37] VITALS: BMI 21.9
[2017-12-15] MEDS ORDERED: Thrombin 5000 UNITS/5 ML VIAL ONE (08:30)
[2017-12-15] MEDS ORDERED: Lidocaine 1% (PF) 30 ML VIAL ONE (08:30)
[2017-12-15] MEDS ORDERED: Bupivacaine PF 0.5% 30 ML VIAL ONE (08:30)
[2017-12-15] MEDS ORDERED: Bacitracin Zinc Ointment 30 gm TUBE ONE (08:30)
[2017-12-15] MEDS ORDERED: Sodium Chloride 0.9% 0 ML ONE (08:31)
[2017-12-15] MEDS ORDERED: Fentanyl 100 MCG/2 ML VIAL ONE ×2 (08:32→08:33)
[2017-12-15] MEDS ORDERED: Midazolam HCl 2 mg/2 ml Vial ONE (08:33)
[2017-12-15 08:37] LABS: #Basophils 0.1 thou/uL (0.0-0.2); #Eosinphils 0.2 thou/uL (0.0-0.7); #Lymphocytes 2.1 thou/uL (1.20-3.40); #Monocytes 0.4 thou/uL (0.11-0.59); #Neutrophils 2.4 thou/uL (1.40-6.50); %Eosinophils 4.2 % (0.0-10.0); %Lymphocytes 40.3 % (21.0-51.0); %Monocytes 7.3 % (0.0-10.0); %Neutrophils 47.2 % (42.0-75.0); Hemoglobin 13.3 g/dL (14.0-18.0); Mean Corpuscular HGB CONC 35.3 g/dL (32.0-36.0); Mean Corpuscular Hemoglobin 29.1 pg (27.0-31.0); Mean Corpuscular Volume 82.6 fL (78.0-98.0); Mean Platelet Volume 7.6 fL (7.4-10.4); Platelet Count 297 thou/uL (130-400); RBC Distribution Width 15.1 % (11.5-14.5); Red Blood Cell (RBC) Count 4.56 mill/uL (4.70-6.10); White Blood Cell (WBC) Count 5.2 thou/uL (4.8-10.8)
[2017-12-15] MEDS ORDERED: Ketorolac Tromethamine 30 MG/ML VIAL ONE (10:26)
--- NOTE | 2017-12-15 11:08 | OP ---
DATE OF PROCEDURE: 12/15/2017 SURGEON: Dr. Greg Burns PREOPERATIVE DIAGNOSES: Left painful intercarpal wires, 2 in the lunate triquetral joint, 2 in the s capholunate joint and 1 in the capitolunate joint. POSTOPERATIVE DIAGNOSES: Left painful intercarpal wires, 2 in the lunate triquetral joint, 2 in the scapholunate joint and 1 in the capitolunate joint. PROCEDURES PERFORMED: 1. Removal of deep wires under general anesthesia 2. C-arm supervision. TOURNIQUET TIME: 8 minutes. ESTIMATED BLOOD LOSS: 10 mL or less. Wires were removed x5. INDICATIONS: The patient returns to the operating room now 12 weeks after very complex lunate disloc ation requiring repair of the multiple intercarpal ligaments and pinning for 8-12 weeks. Now 11 week s have passed and it is time to mobilize and so wire removal was indicated. Under general anesthesia, he was prepped and draped. General anesthesia provided by ____/ Adan silva. A timeout was done appropriately, tourniquet was inflated and bring the tourniquet up at 250 mmHg pre ssure. The C-arm was brought into the field, we identified first the scapholunate wires and removed them wit h approximately a 7-8 mm incision. We extended slightly to obtain hemostasis. Then I repeated this over the lunate triquetral area, over the triquetrum under C-arm supervision. We then used the C-arm completely to locate the capitolunate wire which required some deep dissection, but it was removed. Tourniquet was deflated. Hemostasis obtained and wounds closed with interrupted 4-0 nylon in a simp le pattern. The alignment made anatomic on the frontal sagittal plane, but there was no gap in the s capholunate, lunate triquetral or malrotation of the lunate and lunate remained central. The patient left the operating room with just a soft dressing. No evidence of anesthetic or operative complicat ion.
--- NOTE | 2017-12-15 11:27 | RAD ---
FOUR INTRAOPERATIVE IMAGES OF THE LEFT WRIST: 12/15/2017 HISTORY: Left wrist hardware removal. FINDINGS: There is a metallic density seen lateral to the mid portion of the scaphoid bone. There are two smal l metallic densities overlying the distal radius, two metallic densities overlying the proximal aspec t of the scaphoid bone, two metallic densities overlying the region of the triquetrum, and one metall ic density overlying the proximal aspect of the capitate. There is a vertically oriented metallic st ructure, which overlies the capitate and lunate, on initial imaging, which is no longer present on fi nal imaging. IMPRESSION: Intraoperative imaging of the left wrist, as above. POS: [facility]
[2017-12-15] MEDS ORDERED: Ondansetron HCl/PF 4 MG/2 ML Vial ONE (13:28)
[2017-12-15] MEDS ORDERED: PROPOFOL 200 MG/20 ML VIAL ONE (13:28)
[2017-12-15] MEDS ORDERED: Succinylcholine Chloride 20 MG/ML 10 ml SYRINGE FS ONE (13:28)
[2017-12-15] MEDS ORDERED: Lidocaine 1% PF 5 ML VIAL ONE (13:28)
== END 2017-12-15 11:43 | disposition home or self-care (01) ==
LOC: SDC 07:44
PROVIDERS: ATTEND Orthopaedic Surgery Hand Surgery
PROC: 0RP Upper Joints, Removal (ICD-10-PCS; principal; 2017-12-15)
DX: T84.84XA Pain due to internal orthopedic prosthetic devices, implants and grafts, initial encounter (principal); I10 Essential (primary) hypertension; E11.9 Type 2 diabetes mellitus without complications; Z79.899 Other long term (current) drug therapy; Z79.84 Long term (current) use of oral hypoglycemic drugs; Z98.890 Other specified postprocedural states
CPT/HCPCS: 76000; 85025; 96372; A4216; J1885; J2001; J2250; J2405; J2704; J3010; J3490; S0020